=== PATIENT | male | born 1990 | race Two or more races ===

== ENCOUNTER 2017-11-03 09:57 | Day surgery (SDC) | payer BC ==
[2017-10-29 11:24] LABS: Basophils # (auto) 0 uL; Basophils % (auto) 0.4 % (0.0-2.0); Eosinophils # (auto) 0.2 uL; Eosinophils % (auto) 2.1 % (0.0-7.0); Hematocrit 45.7 % (41.0-53.0); Hemoglobin 15.5 g/dL (13.5-17.5); Lymphocytes % (auto) 26.5 % (10.0-50.0); Mean Corpuscular Hemoglobin 30.6 pg (28.0-32.0); Mean Corpuscular Volume 89.9 fL (80.0-100.0); Monocytes # (auto) 0.7 uL; Monocytes % (auto) 8.9 % (0.0-12.0); Neutrophils # (auto) 4.8 uL; Neutrophils % (auto) 62.1 % (37.0-80.0); Nucleated Red Blood Cells % 0.1 %; Platelet Count (auto) 280 10^3/uL (140-450); Red Blood Cells 5.08 10^6/uL (4.5-5.90); Red Cell Distribution Width 13.3 % (11.8-14.3); White Blood Cell 7.7 10^3/uL (4.4-10.8)
[2017-10-29 11:49] LABS: INR 0.96 (0.9-1.15); Partial Thromboplastin Time 27.8 sec (23.78-33.04); Prothrombin Time 10.3 sec (9.27-12.13)
[~2017-11-03] VITALS: Ht 188 cm; Wt 50.8 kg
[2017-11-03] MEDS ORDERED: ceFAZolin 1GM/50ML 50 ML IV ONE (10:04)
[2017-11-03] MEDS ORDERED: fentaNYL CITRATE 100 MCG/2 ML VL ONE (11:01)
[2017-11-03] MEDS ORDERED: MIDAZOLAM HCL 1MG/1ML-2 ML VIAL ONE (11:01)
[2017-11-03] MEDS ORDERED: PROPOFOL 10 MG/ML 20 ML IV ONE (11:10)
[2017-11-03] MEDS ORDERED: DEXAMETHASONE SOD PHOS 10MG/1ML VIAL INJ ONE (11:10)
[2017-11-03] MEDS ORDERED: ONDANSETRON HCL 4 MG/2 ML VIAL IV ONE (11:30)
[2017-11-03] MEDS ORDERED: MIDAZOLAM HCL 1MG/1ML-2 ML VIAL IV PRN (11:30)
[2017-11-03] MEDS ORDERED: ePHEDrine SULFATE 50 MG/ML AMP IV PRN (11:30)
[2017-11-03] MEDS ORDERED: MORPHINE SULFATE 4 MG/ML SYR/VIAL IV PRN (11:30)
[2017-11-03] MEDS ORDERED: KETOROLAC TROMETH 30 MG/ML 1ML VIAL IV ONE (11:30)
[2017-11-03] MEDS ORDERED: LABETALOL HCL 5 MG/ML 4ML SYRINGE IV PRN (11:30)
[2017-11-03] MEDS ORDERED: MORPHINE SULFATE 4 MG/ML SYR/VIAL IV ONE (12:00)
[2017-11-03] MEDS ORDERED: MORPHINE SULF INJ 2 MG/ML SYRINGE 1ML ONE (12:51)
[2017-11-03] MEDS ORDERED: diphenhdrAMINE HCL 50 MG/1 ML VL ONE (12:56)
[2017-11-03 13:05] VITALS: BP 111/81
== END 2017-11-03 13:20 | disposition home or self-care (01) ==
LOC: SUR 09:57
PROVIDERS: ATTEND Urology
DX: N20.0 Calculus of kidney (principal); Z88.6 Allergy status to analgesic agent; F17.210 Nicotine dependence, cigarettes, uncomplicated
CPT/HCPCS: 36415; 50590; 85025; 85610; 85730; J0690; J1100; J1200; J1885; J2250; J2270; J2704; J3010

== ENCOUNTER 2023-06-01 17:58 | Inpatient (IN) | payer BC, MEDICAID ==
[~2023-06-01] VITALS: Ht 185.4 cm; Wt 63.1 kg
[2023-06-01 18:35] LABS: Basophils # (auto) 0 10 ^3/uL (0-0.2); Basophils % (auto) 0.6 % (0.0-2.0); Eosinophils # (auto) 0.3 10 ^3/uL (0-0.8); Eosinophils % (auto) 3.8 % (0.0-7.0); Hematocrit 42.4 % (41.0-53.0); Hemoglobin 14.4 g/dL (13.5-17.5); Lymphocytes # (auto) 3.4 10 ^3/uL (0.4-5.4); Lymphocytes % (auto) 45.3 % (10.0-50.0); Mean Corpuscular Hemoglobin 30.2 pg (28.0-32.0); Mean Corpuscular Hgb Conc. 33.9 g/dL (32.0-36.0); Mean Corpuscular Volume 89.2 fL (80.0-100.0); Monocytes # (auto) 0.7 10 ^3/uL (0-1.3); Monocytes % (auto) 9.9 % (0.0-12.0); Neutrophils % (auto) 40.4 % (37.0-80.0); Nucleated Red Blood Cells % 0.1 %; Red Blood Cells 4.76 10^6/uL (4.5-5.90); White Blood Cell 7.4 10^3/uL (4.4-10.8)
[2023-06-01 18:45] LABS: Chloride 106 mmol/L (98-107); Potassium 3.7 mmol/L (3.5-5.1); Sodium 141 mmol/L (136-145)
[2023-06-01 18:46] LABS: Anion Gap 5 (5-15); Carbon Dioxide 30 mmol/L (20-30)
[2023-06-01 18:51] LABS: BUN/Creatinine Ratio 8.7 (10.0-20.0); Blood Urea Nitrogen 10 mg/dL (9-23); Glucose 91 mg/dL (74-106)
[2023-06-01 19:21] LABS: Urine Bacteria NONE SEEN /hpf (None Seen); Urine Blood Negative /uL (Negative); Urine Clarity Clear (Clear); Urine Mucus FEW (None Seen); Urine Protein, UAD Negative (Negative); Urine Urobilinogen Normal (Negative); Urine WBC 12 /hpf (0 - 3)
[2023-06-01 19:23] LABS: Urine Color STRAW (Yellow)
[2023-06-01] MEDS ORDERED: MELATONIN 5 MG TAB PO PRN (20:15)
[2023-06-01] MEDS ORDERED: ACETAMINOPHEN 325 MG TAB PO PRN (20:15)
[2023-06-01] MEDS ORDERED: hydrALAZINE HCL 10 MG TAB PO PRN (20:15)
[2023-06-01] MEDS ORDERED: ONDANSETRON HCL 4 MG/2 ML VIAL IV PRN (20:15)
[2023-06-02] VITALS (7 sets, daily range): BP systolic 95–124; BP diastolic 42–85; PULSE 56–117; RESP 15–22; TEMP 97.6–98.8; O2SAT 96–100
[2023-06-02] MEDS: ONDANSETRON HCL 4 MG/2 ML VIAL IV ONE (02:08)
[2023-06-02] MEDS: SODIUM CHLORIDE 0.9% 1,000 ML IVB ONE (02:08)
[2023-06-02] MEDS: SODIUM CHLORIDE 0.9% 1,000 ML IV ONE (02:08)
[2023-06-02] MEDS: SODIUM CHLORIDE 0.9% 1,000 ML IV SCH (02:08)
[2023-06-02] MEDS: cefTRIAXone 1GM/50ML D5W 50 ML IV ONE (02:09)
[2023-06-02] MEDS: KETOROLAC TROMETH 30 MG/ML 1ML VIAL IV ONE (02:09)
[2023-06-02 05:05] LABS: Chloride 110 mmol/L (98-107); Potassium 4.1 mmol/L (3.5-5.1); Sodium 141 mmol/L (136-145)
[2023-06-02 05:06] LABS: Anion Gap 4 (5-15); Basophils # (auto) 0.1 10 ^3/uL (0-0.2); Basophils % (auto) 0.6 % (0.0-2.0); Carbon Dioxide 27 mmol/L (20-30); Eosinophils # (auto) 0.3 10 ^3/uL (0-0.8); Eosinophils % (auto) 3.9 % (0.0-7.0); Hematocrit 37.8 % (41.0-53.0); Hemoglobin 13.2 g/dL (13.5-17.5); Lymphocytes # (auto) 2.6 10 ^3/uL (0.4-5.4); Lymphocytes % (auto) 32.1 % (10.0-50.0); Mean Corpuscular Hgb Conc. 34.9 g/dL (32.0-36.0); Monocytes # (auto) 0.8 10 ^3/uL (0-1.3); Monocytes % (auto) 9.4 % (0.0-12.0); Neutrophils # (auto) 4.4 10 ^3/uL (1.6-8.6); Nucleated Red Blood Cells % 0.1 %; Red Blood Cells 4.25 10^6/uL (4.5-5.90); Red Cell Distribution Width 13.1 % (11.8-14.3); White Blood Cell 8.2 10^3/uL (4.4-10.8)
[2023-06-02 05:07] LABS: Calcium 9.1 mg/dL (8.7-10.4)
[2023-06-02 05:12] LABS: BUN/Creatinine Ratio 10.9 (10.0-20.0); Blood Urea Nitrogen 10 mg/dL (9-23); Glucose 86 mg/dL (74-106)
[2023-06-02] MEDS: cefTRIAXone 1GM/50ML D5W 50 ML IV SCH (09:40)
[2023-06-02] MEDS: PANTOPRAZOLE 40 MG/10 ML VIAL INJ IV SCH (09:40)
[2023-06-02] MEDS: IOHEXOL 300 MG/ML 100ML BOTTLE IJ ONE (12:23)
[2023-06-02] MEDS: ceFAZolin 2 GM/D5W50ml 50 ML IV ONE (12:56)
[2023-06-02] MEDS ORDERED: fentaNYL CITRATE 100 MCG/2 ML VL ONE (13:46)
[2023-06-02] MEDS ORDERED: PROPOFOL 10 MG/ML 20 ML IV ONE (13:46)
[2023-06-02] MEDS ORDERED: DexAMETHasone SOD PHOS 10MG/1ML VIAL INJ ONE (14:17)
[2023-06-02] MEDS ORDERED: ONDANSETRON HCL 4 MG/2 ML VIAL ONE (14:17)
[2023-06-02] MEDS ORDERED: ESMOLOL HCL 10 ML IV ONE (15:53)
[2023-06-02] MEDS ORDERED: METOPROLOL TARTRATE 1MG/1ML-5ML VIAL IV ONE (15:53)
[2023-06-02] MEDS: MEPERIDINE HCL (25 MG/ML) 1ML VIAL ONE (16:01)
[2023-06-02] MEDS: MEPERIDINE HCL (25 MG/ML) 1ML VIAL IV ONE (16:04)
[2023-06-02] MEDS: METOPROLOL TARTRATE 1MG/1ML-5ML VIAL IV ONE ×2 (16:39→16:45)
[2023-06-02] MEDS: DIGOXIN (250MCG/ML) 2 ML AMPULE IV ONE ×3 (17:32→21:10)
[2023-06-02] MEDS: ENOXAPARIN SOD 60 MG/0.6 ML SYRINGE SC SCH (18:42)
[2023-06-02 18:44] LABS: Alanine Aminotransferase 14 U/L (7-40); Albumin 4.1 g/dL (3.2-4.8); Alkaline Phosphatase 55 U/L (46-116); Anion Gap 4 (5-15); Aspartate Aminotransferase 18 U/L (13-40); BUN/Creatinine Ratio 7.6 (10.0-20.0); Bilirubin, Total 0.9 mg/dL (0.2-1.0); Blood Urea Nitrogen 8 mg/dL (9-23); Calcium 9.1 mg/dL (8.5-10.1); Carbon Dioxide 27 mmol/L (20-30); Chloride 110 mmol/L (98-107); Glucose 97 mg/dL (74-106); Potassium 4.1 mmol/L (3.5-5.1); Sodium 141 mmol/L (136-145); Total Protein 5.9 g/dL (5.7-8.2)
[2023-06-02] MEDS: HYDROcodone-ACET 5/325MG TAB PO PRN (18:55)
[2023-06-02 19:04] LABS: Magnesium 1.6 mg/dL (1.6-2.6)
[2023-06-03 05:00] VITALS: BP_SYST 114; BP_SYST 129; BP_DIAS 63; BP_DIAS 64; PULSE 73; PULSE 84; RESP 22; TEMP 98.3; TEMP 98.5; O2SAT 94; O2SAT 99
[2023-06-03] MEDS ORDERED: IOHEXOL 300 MG/ML 100ML BOTTLE IJ ONE (06:36)
[2023-06-03 09:00] VITALS: BP 119/66; PULSE 101; RESP 18; TEMP 98.1; O2SAT 96
[2023-06-03] MEDS: DIGOXIN 0.125 MG TAB PO SCH (09:17)
[2023-06-03] MEDS: MAGNESIUM SULFATE 1GM/100ML 100 ML IV SCH (12:35)
[2023-06-03 13:00] VITALS: BP 99/35; PULSE 63; RESP 20; TEMP 98; O2SAT 100
[2023-06-03 16:56] VITALS: BP 104/60; PULSE 74; RESP 20; TEMP 98.4; O2SAT 98
[2023-06-03] MEDS: METOPROLOL TARTRATE 25 MG TAB PO SCH (21:32)
[2023-06-03 21:59] VITALS: BP 109/50; PULSE 77; RESP 16; TEMP 98.3; O2SAT 99
[2023-06-04 04:42] VITALS: BP 115/61; PULSE 68; RESP 16; TEMP 98; O2SAT 99
[2023-06-04 09:00] VITALS: BP 117/76; PULSE 85; RESP 20; TEMP 98.4; O2SAT 96
[2023-06-04 13:00] VITALS: BP 136/84; PULSE 67; RESP 18; TEMP 98; O2SAT 99
[2023-06-04] MEDS ORDERED: DIGO1TAB48 PO (14:04)
[2023-06-04] MEDS ORDERED: HYDR-4902 PO (14:04)
[2023-06-04] MEDS ORDERED: CEPH500C PO (14:04)
[2023-06-04] MEDS ORDERED: MET25T PO (14:04)
[2023-06-04 14:27] VITALS: BP 119/68; PULSE 70; TEMP 36.9
[2023-06-04] MEDS ORDERED: RIV20T PO (15:28)
[2023-06-04 17:00] VITALS: BP 104/63; PULSE 78; RESP 16; TEMP 99.1; O2SAT 97
[2023-06-04] MEDS ORDERED: RIVAROXABAN 20 MG TAB PO SCH (18:00)
== END 2023-06-04 18:00 | disposition home or self-care (01) | DRG 463 ==
LOC: ER 17:58 → OVERFLOW 20:16 → WEST WING 06-02 05:20 → TELE-WESTW 06-03 07:23
PROVIDERS: ADMIT Nurse Practitioner Family; ATTEND Nurse Practitioner Family
PROC: 0TF4XZZ Fragmentation in Left Kidney Pelvis, External Approach (ICD-10-PCS; principal; 2023-06-02 14:01)
DX: N13.6 Pyonephrosis (principal); I48.91 Unspecified atrial fibrillation; Z87.891 Personal history of nicotine dependence
CPT/HCPCS: 36415; 71045; 74176; 74178; 80048; 80053; 80061; 81001; 83036; 83735; 84443; 85025; 87086; 93005; 93306; C9113; G0378; J1100; J1885; J2405; J2704